=== PATIENT | male | born 1950 | race Caucasian/White ===

== ENCOUNTER 2017-03-25 10:42 | Outpatient (CLI) | payer OTHER ==
--- NOTE | 2017-03-25 12:22 | DIAGNOSTIC IMAGING REPORT ---
PROCEDURE: US KIDNEY/RENAL COMPLETE INDICATION: STAGE III KIDNEY DISEASE TECHNIQUE: Vu scale and color Doppler sonographic imaging of the kidneys and urinary bladder was obtained. Intrarenal resistive indices were calculated when appropriate. COMPARISON: None. FINDINGS: The right kidney measures 11.3 x 7.1 x 5.0 cm Normal cortical thickness and echogenicity. No hydronephrosis, cyst, solid mass, or shadowing calculus. Normal color Doppler blood flow throughout the kidney. Resistive indices in the intrarenal parenchymal arteries range from 0.68-0.70 The left kidney measures 11.1-6.1 x 5.7 cm Normal cortical thickness and echogenicity. No hydronephrosis, cyst, solid mass, or shadowing calculus. Normal color Doppler blood flow throughout the kidney. Resistive indices in the intrarenal parenchymal arteries range from 0.68-0.72 The filled urinary bladder has a volume of 120 ml and a post void residual of 00 CC The urinary bladder wall is uniform in thickness without suspicious thickening or irregularity. No bladder debris, calcification or mass. Bilateral ureteral jets were visible indicating ureteral patency. Prostate measures 3.5 x 3.6 x 3.0 cm IMPRESSION: 1. Normal renal morphology. 2. Normal urinary bladder morphology.
== END 2017-03-25 23:00 ==
LOC: US SRH 10:42
DX: N18.3 Chronic kidney disease, stage 3 (moderate) (principal)